=== PATIENT | female | born 1990 | race Caucasian/White ===

== ENCOUNTER 2016-09-18 01:24 | Emergency (ER) | payer MEDICAID ==
[~2016-09-18] VITALS: Ht 160 cm; Wt 61.4 kg
[~2016-09-18 01:24] MED LIST: FERR-89 PO; IBUP-1547 PO; PREN1TAB52 PO
[2016-09-18 03:35] LABS: APPEARANCE,URINE CLOUDY (CLEAR); GLUCOSE, URINE (UA) NEGATIVE (NEGATIVE); KETONES,URINE NEGATIVE (NEGATIVE); LEUKOCYTE ESTERASE ,URINE TRACE (NEGATIVE); OCCULT BLOOD,URINE NEGATIVE (NEGATIVE); PROTEIN,URINE NEGATIVE (NEGATIVE)
[2016-09-18 03:47] LABS: CALCIUM OXALATE CRYSTALS,UR Moderate /LPF (None Seen); RBC,URINE None Seen /HPF (0-2); SQUAMOUS EPITHELIAL CELL,UR Many /LPF (None Seen); WBC,URINE 0-2 /HPF (0-5)
[2016-09-18 03:57] VITALS: BP 112/81
[2016-09-18] MEDS ORDERED: ACETAMINOPHEN 500 MG TABLET PO ONE (04:00)
[2016-09-18] MEDS ORDERED: IBUPROFEN 600 MG TABLET PO ONE (04:00)
== END 2016-09-18 04:09 | disposition home or self-care (01) ==
LOC: EMS 01:25
DX: S29.012A Strain of muscle and tendon of back wall of thorax, initial encounter (principal); X58.XXXA Exposure to other specified factors, initial encounter; Y93.89 Activity, other specified; Y92.59 Other trade areas as the place of occurrence of the external cause; Y99.8 Other external cause status
CPT/HCPCS: 87086; 99284

== ENCOUNTER 2017-09-28 20:25 | Observation (INO) | payer MEDICAID ==
[~2017-09-28] VITALS: Ht 160 cm; Wt 78.0 kg
[2017-09-28 21:12] VITALS: BP 103/66
[2017-09-28] MEDS ORDERED: PREN1TAB80 PO (21:15)
== END 2017-09-28 22:05 | disposition home or self-care (01) ==
LOC: 4S 20:25
PROVIDERS: ADMIT Obstetrics & Gynecology; ATTEND Obstetrics & Gynecology
DX: O36.8130 Decreased fetal movements, third trimester, not applicable or unspecified (principal); Z3A.39 39 weeks gestation of pregnancy
CPT/HCPCS: 59025; G0378

== ENCOUNTER 2017-09-30 18:30 | Observation (INO) | payer MEDICAID ==
[~2017-09-30] VITALS: Ht 160 cm; Wt 75.7 kg
[~2017-09-30 18:30] MED LIST changes: -FERR-89 PO; -IBUP-1547 PO; -PREN1TAB52 PO; +PREN1TAB80 PO
[2017-09-30 18:48] VITALS: BP 103/65
[2017-09-30] MEDS ORDERED: FERR-89 PO (19:07)
== END 2017-09-30 20:45 | disposition home or self-care (01) ==
LOC: 4S 18:30
PROVIDERS: ADMIT Obstetrics & Gynecology; ATTEND Obstetrics & Gynecology
DX: O62.9 Abnormality of forces of labor, unspecified (principal); Z3A.39 39 weeks gestation of pregnancy
CPT/HCPCS: 59025; G0378

== ENCOUNTER 2020-03-06 20:31 | Emergency (ER) | payer MEDICAID ==
[~2020-03-06] VITALS: Ht 165.1 cm; Wt 68.2 kg
[~2020-03-06 20:31] MED LIST changes: +FERR-89 PO
[2020-03-06 22:55] VITALS: BP 110/72
== END 2020-03-06 23:20 | disposition home or self-care (01) ==
LOC: EMS 20:34
DX: T74.11XA Adult physical abuse, confirmed, initial encounter (principal); Y04.2XXA Assault by strike against or bumped into by another person, initial encounter; Y93.89 Activity, other specified; Y92.89 Other specified places as the place of occurrence of the external cause; Y99.8 Other external cause status

== ENCOUNTER 2020-12-05 19:50 | Emergency (ER) | payer MEDICAID ==
[~2020-12-05] VITALS: Ht 165.1 cm; Wt 75.5 kg
[2020-12-05 21:24] VITALS: BP 123/70
== END 2020-12-05 21:37 | disposition home or self-care (01) ==
LOC: EMS 19:52
DX: J06.9 Acute upper respiratory infection, unspecified (principal); K08.89 Other specified disorders of teeth and supporting structures; H92.02 Otalgia, left ear
CPT/HCPCS: 99281; Z7502

== ENCOUNTER 2021-03-03 04:18 | Emergency (ER) | payer MEDICAID ==
[~2021-03-03] VITALS: Ht 165.1 cm; Wt 75.5 kg
[2021-03-03 04:21] VITALS: BP 103/66
[2021-03-03 05:19] LABS: APPEARANCE,URINE CLEAR (CLEAR); BILIRUBIN,URINE NEGATIVE (NEGATIVE); GLUCOSE, URINE (UA) NEGATIVE (NEGATIVE); KETONES,URINE NEGATIVE (NEGATIVE); LEUKOCYTE ESTERASE ,URINE TRACE (NEGATIVE); NITRATE,URINE NEGATIVE (NEGATIVE); OCCULT BLOOD,URINE NEGATIVE (NEGATIVE); PH,URINE 6.5 (5.0-8.0); PROTEIN,URINE NEGATIVE (NEGATIVE); UROBILINOGEN,URINE 0.2 mg/dL (<=1.0)
[2021-03-03 05:23] LABS: BACTERIA,URINE Few /HPF (None Seen); RBC,URINE 0-2 /HPF (0-2)
[2021-03-03] MEDS ORDERED: FLUCONAZOLE 150 MG TABLET PO ONE (05:30)
== END 2021-03-03 05:49 | disposition home or self-care (01) ==
LOC: EMS 04:22
DX: B37.3 Candidiasis of vulva and vagina (principal)
CPT/HCPCS: 81001; 87210; 99283

== ENCOUNTER 2021-07-26 17:48 | Emergency (ER) | payer MEDICAID ==
[~2021-07-26] VITALS: Ht 160 cm; Wt 68.0 kg
[2021-07-26] MEDS ORDERED: PENI500T2 PO (19:04)
[2021-07-26 19:13] VITALS: BP 129/70
== END 2021-07-26 19:16 | disposition home or self-care (01) ==
LOC: EMS 18:12
DX: H92.01 Otalgia, right ear (principal); K08.89 Other specified disorders of teeth and supporting structures
CPT/HCPCS: 99283

== ENCOUNTER 2022-08-16 09:49 | Emergency (ER) | payer MEDICAID ==
[~2022-08-16] VITALS: Ht 162.6 cm; Wt 68.2 kg
[~2022-08-16 09:49] MED LIST changes: -FERR-89 PO; +FERR325T27 PO; +PENI500T2 PO
[2022-08-16] MEDS ORDERED: KETOROLAC TROMETHAMINE 30 MG/ML VIAL IVP ONE (11:30)
[2022-08-16] MEDS ORDERED: SODIUM CHLORIDE 0.9% 1,000 ML IV ONE (11:30)
[2022-08-16] MEDS ORDERED: ONDANSETRON HCL 4 MG/2 ML VIAL IVP ONE (11:30)
[2022-08-16 11:39] LABS: BASOPHILS % (AUTO) 0.4 % (0.0-2.0); EOSINOPHILS % (AUTO) 0.1 % (1.0-6.0); HEMATOCRIT 40.8 % (36-46); HEMOGLOBIN 14.4 g/dL (12.0-16.0); LYMPHOCYTES # (AUTO) 0.8 K/uL (1.0-4.8); LYMPHOCYTES % (AUTO) 8.2 % (22.0-44.0); MEAN CORPUSCULAR HGB CONC 35.4 G/dL (31.0-37.0); MEAN CORPUSCULAR VOLUME 93 fL (80-100); MONOCYTES # (AUTO) 0.2 K/uL (0.1-1.0); MONOCYTES % (AUTO) 1.5 % (2.0-9.0); NEUTROPHILS # (AUTO) 9.2 K/uL (1.8-7.7); NEUTROPHILS % (AUTO) 89.8 % (40.0-70.0); PLATELET COUNT (AUTO) 324 K/uL (150-450); RED BLOOD CELL COUNT(AUTO) 4.37 MIL/uL (4.00-5.20); RED CELL DISTRIBUTION WIDTH 12.7 % (11.5-14.5)
[2022-08-16 12:01] LABS: ANION GAP 8 mmol/L (8-16); CALCIUM, TOTAL 8.9 mg/dL (8.8-10.5); CARBON DIOXIDE 27 mmol/L (22-29); CHLORIDE 99 mmol/L (98-107); CREATININE 0.75 mg/dL (0.60-1.30); GLOMERULAR FILTR. RATE CALC > 60 mL/min (>60); GLUCOSE,RANDOM 97 mg/dL (70-110); POTASSIUM 3.8 mmol/L (3.5-5.1); SODIUM SERUM 134 mmol/L (136-145); UREA NITROGEN, BLOOD 11 mg/dL (7-18)
[2022-08-16 12:12] LABS: ALANINE AMINOTRANSFERASE 29 U/L (12-78); ALBUMIN 4.1 g/dL (3.4-5.0); ALKALINE PHOSPHATASE 77 U/L (46-116); ASPARTATE AMINOTRANSFERASE 25 U/L (15-37); BILIRUBIN,TOTAL 0.3 mg/dL (0.1-1.0); HCG,QUANTITATIVE < 1 mIU/mL (0-6); LIPASE 71 U/L (73-393)
[2022-08-16 12:37] LABS: APPEARANCE,URINE HAZY (CLEAR); BILIRUBIN,URINE NEGATIVE (NEGATIVE); GLUCOSE, URINE (UA) NEGATIVE (NEGATIVE); LEUKOCYTE ESTERASE ,URINE MODERATE (NEGATIVE); NITRATE,URINE NEGATIVE (NEGATIVE); OCCULT BLOOD,URINE NEGATIVE (NEGATIVE); PROTEIN,URINE NEGATIVE (NEGATIVE); SPECIFIC GRAVITIY, URINE 1.009 (1.003-1.030); UROBILINOGEN,URINE <=1.0 mg/dL (<=1.0)
[2022-08-16 12:56] LABS: BACTERIA,URINE Many /HPF (None Seen); RBC,URINE 0-2 /HPF (0-2); SQUAMOUS EPITHELIAL CELL,UR Many /LPF (None Seen)
[2022-08-16] MEDS ORDERED: CEPH-558 PO (13:08)
[2022-08-16] MEDS ORDERED: ONDANSETRON HCL 4 MG TABLET PO ONE (13:30)
[2022-08-16] MEDS ORDERED: IBUPROFEN 600 MG TABLET PO ONE (13:30)
[2022-08-16 18:53] VITALS: BP 126/77
== END 2022-08-16 20:01 | disposition left against medical advice (07) ==
LOC: EMS 09:56
DX: R10.9 Unspecified abdominal pain (principal); N39.0 Urinary tract infection, site not specified
CPT/HCPCS: 99285; 74176; 80053; 81001; 83690; 84702; 85025; 36415; 87086; 87186; 76817; Q0162; J1885; J2405; J7030